=== PATIENT | male | born 1995 | race Caucasian/White ===

== ENCOUNTER 2016-07-02 20:34 | Emergency (ER) ==
[2016-07-02 20:38] VITALS: BP 144/89; TEMP 98.3; BMI 24.3
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
== END 2016-07-02 22:25 | disposition home or self-care (01) ==
LOC: ED 20:34
DX: S16.1XXA Strain of muscle, fascia and tendon at neck level, initial encounter (principal); S39.012A Strain of muscle, fascia and tendon of lower back, initial encounter; V89.2XXA Person injured in unspecified motor-vehicle accident, traffic, initial encounter
CPT/HCPCS: 99283

== ENCOUNTER 2017-03-06 23:59 | Outpatient (CLI) ==
[2012-09-21 11:17] VITALS: TEMP 97.8
== END 2017-03-07 | disposition short-term general hospital (02) ==
LOC: AMBL 23:59
PROVIDERS: ATTEND Family Medicine
DX: R51 Headache (principal); R22.0 Localized swelling, mass and lump, head; V43.52XA Car driver injured in collision with other type car in traffic accident, initial encounter

== ENCOUNTER 2017-03-11 11:33 | Outpatient (CLI) ==
[2012-09-21 11:17] VITALS: TEMP 97.8
--- NOTE | 2017-03-11 13:41 | DI ---
Exam: Six x-rays of the cervical spine. Comparison: CT cervical spine performed 07/02/2016. Reason for exam: Cervicalgia. FINDINGS: No acute fracture or listhesis. The vertebral body and intervertebral body disc space hei ghts are relatively well maintained. There is a normal appearing cervical lordotic curve. The preve rtebral soft tissues are within normal limits. The dens appears intact on the open-mouth odontoid vi ew. Impression: No acute fracture or listhesis in the cervical spine
== END 2017-03-11 11:34 | disposition home or self-care (01) ==
LOC: RAD 11:33
PROVIDERS: ATTEND Nurse Practitioner Family
DX: M54.2 Cervicalgia (principal)